=== PATIENT | male | born 1995 | race Asian ===

== ENCOUNTER 2018-07-01 06:53 | Emergency (ER) | payer BC ==
[~2018-07-01] VITALS: Ht 185.4 cm; Wt 136.1 kg
[2018-07-01 06:58] VITALS: TEMP 98.2
[2018-07-01 08:04] LABS: PLATELET COUNT 284 K/uL (142-355)
[2018-07-01 08:12] LABS: POTASSIUM 4.2 mmol/L (3.6-5.2); SODIUM 140 mmol/L (136-145)
[2018-07-01 09:21] VITALS: BP 108/74
== END 2018-07-01 09:22 | disposition home or self-care (01) ==
LOC: ED 06:53
DX: R07.89 Other chest pain (principal); M94.0 Chondrocostal junction syndrome [Tietze]
CPT/HCPCS: 36415; 80053; 81000; 82550; 82553; 84484; 85027; 93005; 99283